=== PATIENT | male | born 1945 | race Hispanic/Latino ===

== ENCOUNTER 2020-04-29 12:43 | Emergency (ER) | payer OTHER, MEDICARE ==
[~2020-04-29] VITALS: Ht 182.9 cm; Wt 113.4 kg
[2020-04-29] MEDS ORDERED: ACETAMINOPHEN 325 MG TAB ONE ×2 (13:09→14:07)
[2020-04-29] MEDS ORDERED: TETANUS/DIPHTHERIA TOXOID [ADULT] 0.5 ML VIAL IM ONE (13:10)
[2020-04-29 13:25] LABS: BASOPHILS % (AUTO) 0.3 % (0.0-5.0); EOSINOPHILS % (AUTO) 0.3 % (0.0-8.0); HEMATOCRIT 41.2 % (42-54); LYMPHOCYTES % (AUTO) 16.9 % (21.0-51.0); MEAN CORPUSCULAR HGB CONC 33.7 g/dL (32.0-36.0); MEAN CORPUSCULAR VOLUME 94.7 fL (79-99); MONOCYTES % (AUTO) 5.1 % (3.0-13.0); NEUTROPHILS % (AUTO) 77.2 % (40.0-77.0); PLATELET COUNT (AUTO) 240 K/uL (130-400); RED BLOOD CELL COUNT(AUTO) 4.35 MIL/uL (4.50-6.20); RED CELL DISTRIBUTION WIDTH 13.5 % (11.0-15.5); WHITE BLOOD COUNT (AUTO) 9.1 K/uL (4.8-10.8)
[2020-04-29 13:37] LABS: CREATININE 1.4 mg/dL (0.5-1.5); POTASSIUM 3.7 mmol/L (3.5-5.1)
[2020-04-29 13:41] LABS: ALBUMIN 3.2 g/dL (3.5-5.0); TOTAL PROTEIN, SERUM 7.3 g/dL (6.0-8.3)
[2020-04-29] MEDS ORDERED: AMOXICILLIN/POTASSIUM CLAV 875-125 TABLET PO SCH (14:30)
[2020-05-19] MEDS ORDERED: PARO-37 PO (01:23)
[2020-05-19] MEDS ORDERED: ALLO100T PO (01:23)
[2020-05-19] MEDS ORDERED: CHOL2000 PO (01:23)
[2020-05-19] MEDS ORDERED: NIFE30TA98 PO (01:23)
[2020-05-19] MEDS ORDERED: ATOR20TA65 PO (01:23)
[2020-05-19] MEDS ORDERED: VALS320T16 PO (01:23)
== END 2020-04-29 16:07 | disposition home or self-care (01) ==
LOC: EDH 12:43
DX: S81.851A Open bite, right lower leg, initial encounter (principal); R73.9 Hyperglycemia, unspecified; Z90.49 Acquired absence of other specified parts of digestive tract; W54.0XXA Bitten by dog, initial encounter; Y93.89 Activity, other specified; Y92.098 Other place in other non-institutional residence as the place of occurrence of the external cause; Y99.8 Other external cause status
CPT/HCPCS: 36415; 73590; 80053; 85025; 90471; 90714

== ENCOUNTER → 2020-05-10 | Outpatient (CLI) | payer OTHER, MEDICARE ==
[~2020-05-10] MED LIST: ALLO100T PO; ATOR20TA65 PO; CHOL2000 PO; LIDOCAINE/PRILOCAINE CREAM 5GM TUBE TP ONE; NIFE30TA98 PO; PARO-37 PO; VALS320T16 PO
== END | disposition home or self-care (01) ==
LOC: WHH 09:00
PROVIDERS: ATTEND Family Medicine
DX: S81.852A Open bite, left lower leg, initial encounter (principal); S81.851A Open bite, right lower leg, initial encounter; I12.9 Hypertensive chronic kidney disease with stage 1 through stage 4 chronic kidney disease, or unspecified chronic kidney disease; N18.2 Chronic kidney disease, stage 2 (mild); E78.5 Hyperlipidemia, unspecified; I51.7 Cardiomegaly; F10.10 Alcohol abuse, uncomplicated; F32.9 Major depressive disorder, single episode, unspecified; Z90.49 Acquired absence of other specified parts of digestive tract; W54.0XXA Bitten by dog, initial encounter; Y93.89 Activity, other specified; Y92.89 Other specified places as the place of occurrence of the external cause; Y99.8 Other external cause status
CPT/HCPCS: 11042; A4450; J3490

== ENCOUNTER 2021-12-09 14:02 | Inpatient (IN) | payer MEDICARE ==
[~2021-12-09] VITALS: Ht 182.9 cm; Wt 126.1 kg
[~2021-12-09 14:02] MED LIST changes: -LIDOCAINE/PRILOCAINE CREAM 5GM TUBE TP ONE
[2021-12-09] MEDS ORDERED: 0.9%NACL 1000ML 1,000 ML IV ONE (14:08)
[2021-12-09 14:30] LABS: BASOPHILS % (AUTO) 0.3 % (0.0-5.0); HEMATOCRIT 41.8 % (42-54); LYMPHOCYTES % (AUTO) 8.1 % (21.0-51.0); MEAN CORPUSCULAR VOLUME 88.4 fL (79-99); MONOCYTES % (AUTO) 5.4 % (3.0-13.0); NEUTROPHILS % (AUTO) 85.5 % (40.0-77.0); PLATELET COUNT (AUTO) 87 K/uL (130-400); RED BLOOD CELL COUNT(AUTO) 4.73 MIL/uL (4.50-6.20); RED CELL DISTRIBUTION WIDTH 14.3 % (11.0-15.5); WHITE BLOOD COUNT (AUTO) 6.8 K/uL (4.8-10.8)
[2021-12-09 14:40] LABS: POTASSIUM 3.9 mmol/L (3.5-5.1)
[2021-12-09 14:42] LABS: INR 1.1 (0.85-1.15); PROTHROMBIN TIME 11.9 SEC (9.6-11.6)
[2021-12-09 14:44] LABS: PARTIAL THROMBOPLASTIN TIME 28.1 SEC (26.3-35.5)
[2021-12-09 14:47] LABS: ALBUMIN 2.6 g/dL (3.5-5.0); BILIRUBIN,TOTAL 2.4 mg/dL (0.2-1.0); TOTAL PROTEIN, SERUM 6.2 g/dL (6.0-8.3)
[2021-12-09 14:52] LABS: B-TYPE NATRIURETIC PEPTIDE 32 pg/mL (0-100)
[2021-12-09] MEDS ORDERED: ONDANSETRON 4MG INJ IVP PRN (16:30)
[2021-12-09] MEDS: INSULIN HUMULIN R 100 UNIT/ML 3ML SQ SCH ×2 (16:30→20:30)
[2021-12-09 18:29] LABS: APPEARANCE,URINE Turbid (CLEAR); BILIRUBIN,URINE Small (NEGATIVE); COLOR,URINE Dark Yellow (YELLOW); GLUCOSE, URINE (UA) Negative (NEGATIVE); KETONES,URINE Trace mg/dL (NEGATIVE); LEUKOCYTE ESTERASE ,URINE Trace (NEGATIVE); NITRATE,URINE Positive (NEGATIVE); OCCULT BLOOD,URINE Negative (NEGATIVE); PH,URINE 5.5 (5.0-8.0); PROTEIN,URINE POS 1+ mg/dL (NEGATIVE)
[2021-12-09] MEDS: IPRATROPIUM/ALBUTEROL SULFATE 3 ML SOLUTION IH SCH (18:30)
[2021-12-09 18:37] LABS: AMPHET/METH SCREEN,URINE NEGATIVE (NEGATIVE); BARBITURATE SCREEN, URINE NEGATIVE (NEGATIVE); BENZODIAZEPINES SCREEN,URINE NEGATIVE (NEGATIVE); CANNABINOID SCREEN,URINE POSITIVE (NEGATIVE); COCAINE SCREEN,URINE POSITIVE (NEGATIVE); OPIATE SCREEN,URINE NEGATIVE (NEGATIVE); PHENCYCLIDINE SCREEN,URINE NEGATIVE (NEGATIVE)
[2021-12-09 18:38] LABS: AMORPHOUS SEDIMENT,UR Moderate /LPF (None Seen); BACTERIA,URINE Few /HPF (None Seen); MUCUS,URINE Many LPF (None Seen); SQUAMOUS EPITHELIAL CELL,UR Moderate /HPF (0-2)
[2021-12-09 19:40] VITALS: BP 134/62
[2021-12-09 23:29] VITALS: BP 142/68
[2021-12-10] MEDS: IPRATROPIUM/ALBUTEROL SULFATE 3 ML SOLUTION IH SCH ×4 (00:15→19:43)
[2021-12-10 04:31] VITALS: BP 138/69
[2021-12-10 04:57] LABS: HEMATOCRIT 38.3 % (42-54); MEAN CORPUSCULAR HEMOGLOBIN 29.9 pg (27.0-33.0); MEAN CORPUSCULAR HGB CONC 33.7 g/dL (32.0-36.0); MEAN CORPUSCULAR VOLUME 88.9 fL (79-99); RED BLOOD CELL COUNT(AUTO) 4.31 MIL/uL (4.50-6.20); RED CELL DISTRIBUTION WIDTH 14.6 % (11.0-15.5); WHITE BLOOD COUNT (AUTO) 6.3 K/uL (4.8-10.8)
[2021-12-10 05:07] LABS: CREATININE 1.9 mg/dL (0.5-1.5); MAGNESIUM 1.9 mg/dL (1.80-2.40); POTASSIUM 3.6 mmol/L (3.5-5.1)
[2021-12-10 05:21] LABS: HEMOGLOBIN A1C 6.2 % (4.0-6.0)
[2021-12-10] MEDS ORDERED: MAGNESIUM 2GM PREMIX 50ML 50 ML IV PRN (06:00)
[2021-12-10] MEDS ORDERED: LIDOCAINE HCL-MPF 1% 2ML VIAL IV PRN (06:00)
[2021-12-10] MEDS ORDERED: POTASSIUM CHLORIDE 10% ELIXIR 20 MEQ/15 ML UDCUP PO PRN (06:00)
[2021-12-10] MEDS ORDERED: POTASSIUM CHLORIDE 20MEQ/100ML 100 ML IV PRN (06:00)
[2021-12-10] MEDS: KCL 20 MEQ ERTAB PO PRN ×2 (06:23→19:54)
[2021-12-10 07:05] VITALS: BP 93/27
[2021-12-10] MEDS: INSULIN HUMULIN R 100 UNIT/ML 3ML SQ SCH ×4 (07:17→21:22)
[2021-12-10] MEDS: FUROSEMIDE 40MG VIAL IV SCH (09:56)
[2021-12-10] MEDS: ENOXAPARIN SODIUM 40 MG/0.4 ML SYRINGE SQ SCH (09:57)
[2021-12-10 11:05] VITALS: BP 104/43
[2021-12-10] MEDS ORDERED: IPRATROPIUM/ALBUTEROL SULFATE 3 ML SOLUTION IH PRN (14:30)
[2021-12-10 15:05] VITALS: BP 114/45
[2021-12-10] MEDS: DEXTROSE 5 % AND 0.9 % NACL 1,000 ML IV SCH (15:14)
[2021-12-10 20:00] VITALS: BP 114/53
[2021-12-10] MEDS ORDERED: ALPRAZOLAM 0.5 MG TABLET PO SCH (20:30)
[2021-12-11] VITALS: BP 108/56
[2021-12-11] MEDS: IPRATROPIUM/ALBUTEROL SULFATE 3 ML SOLUTION IH SCH ×5 (01:19→23:46)
[2021-12-11] MEDS: ACETAMINOPHEN 325 MG TAB PO PRN (01:32)
[2021-12-11] MEDS: DEXTROSE 5 % AND 0.9 % NACL 1,000 ML IV SCH ×2 (02:13→18:14)
[2021-12-11 04:00] VITALS: BP 100/54
[2021-12-11 04:41] LABS: BASOPHILS % (AUTO) 0.4 % (0.0-5.0); HEMATOCRIT 35.5 % (42-54); LYMPHOCYTES % (AUTO) 7.8 % (21.0-51.0); MEAN CORPUSCULAR HGB CONC 34.9 g/dL (32.0-36.0); MEAN CORPUSCULAR VOLUME 88.8 fL (79-99); MONOCYTES % (AUTO) 6.1 % (3.0-13.0); NEUTROPHILS % (AUTO) 84.6 % (40.0-77.0); PLATELET COUNT (AUTO) 68 K/uL (130-400); RED CELL DISTRIBUTION WIDTH 14.7 % (11.0-15.5); WHITE BLOOD COUNT (AUTO) 5.3 K/uL (4.8-10.8)
[2021-12-11 04:54] LABS: CREATININE 2.5 mg/dL (0.5-1.5); MAGNESIUM 2.2 mg/dL (1.80-2.40); POTASSIUM 3.7 mmol/L (3.5-5.1)
[2021-12-11] MEDS: INSULIN HUMULIN R 100 UNIT/ML 3ML SQ SCH ×4 (06:41→20:24)
[2021-12-11 07:56] VITALS: BP 99/51
[2021-12-11] MEDS: FUROSEMIDE 40MG VIAL IV SCH (08:53)
[2021-12-11] MEDS: ENOXAPARIN SODIUM 40 MG/0.4 ML SYRINGE SQ SCH (08:54)
[2021-12-11 12:00] VITALS: BP 85/46
[2021-12-11 16:00] VITALS: BP 102/48
[2021-12-11 20:00] VITALS: BP 99/51
[2021-12-12] VITALS (8 sets, daily range): BP systolic 83–117; BP diastolic 38–59
[2021-12-12 05:33] LABS: HEMATOCRIT 35.8 % (42-54); MEAN CORPUSCULAR HGB CONC 33.8 g/dL (32.0-36.0); MEAN CORPUSCULAR VOLUME 88.6 fL (79-99); RED BLOOD CELL COUNT(AUTO) 4.04 MIL/uL (4.50-6.20); RED CELL DISTRIBUTION WIDTH 15.1 % (11.0-15.5); WHITE BLOOD COUNT (AUTO) 8.7 K/uL (4.8-10.8)
[2021-12-12] MEDS: INSULIN HUMULIN R 100 UNIT/ML 3ML SQ SCH ×4 (05:51→20:11)
[2021-12-12 05:55] LABS: CREATININE 3.4 mg/dL (0.5-1.5); MAGNESIUM 2.3 mg/dL (1.80-2.40); POTASSIUM 3.9 mmol/L (3.5-5.1)
[2021-12-12] MEDS: IPRATROPIUM/ALBUTEROL SULFATE 3 ML SOLUTION IH SCH ×4 (06:40→23:12)
[2021-12-12] MEDS: DEXTROSE 5 % AND 0.9 % NACL 1,000 ML IV SCH ×2 (07:02→15:21)
[2021-12-12] MEDS: FUROSEMIDE 40MG VIAL IV SCH (08:09)
[2021-12-12] MEDS: ENOXAPARIN SODIUM 40 MG/0.4 ML SYRINGE SQ SCH (08:09)
[2021-12-13] VITALS (7 sets, daily range): BP systolic 84–110; BP diastolic 42–53
[2021-12-13 05:22] LABS: ALBUMIN 1.7 g/dL (3.5-5.0); CREATININE 3.8 mg/dL (0.5-1.5); PHOSPHORUS 3.7 mg/dL (2.5-4.9); POTASSIUM 4.2 mmol/L (3.5-5.1)
[2021-12-13] MEDS: INSULIN HUMULIN R 100 UNIT/ML 3ML SQ SCH ×4 (06:09→21:00)
[2021-12-13] MEDS: IPRATROPIUM/ALBUTEROL SULFATE 3 ML SOLUTION IH SCH ×4 (06:19→23:08)
[2021-12-13] MEDS: DEXTROSE 5 % AND 0.9 % NACL 1,000 ML IV SCH (09:49)
[2021-12-13] MEDS ORDERED: 0.9% NACL 500ML IV.SOLN 500 ML IV ONE ×2 (13:56→14:00)
[2021-12-13] MEDS: DILTIAZEM 60MG TAB ONE ×2 (13:59→15:13)
[2021-12-13] MEDS ORDERED: 0.9%NACL 1000ML 1,000 ML IV SCH (14:00)
[2021-12-13] MEDS: ENOXAPARIN SODIUM 40 MG/0.4 ML SYRINGE SQ SCH (14:57)
[2021-12-13] MEDS ORDERED: DILTIAZEM 60MG TAB PO SCH (18:00)
[2021-12-13] MEDS: DILTIAZEM 60MG TAB PO SCH ×2 (21:00→23:44)
[2021-12-14 04:21] VITALS: BP 84/42
[2021-12-14] MEDS: DILTIAZEM 60MG TAB PO SCH ×4 (06:00→23:50)
[2021-12-14] MEDS: INSULIN HUMULIN R 100 UNIT/ML 3ML SQ SCH ×4 (06:10→21:00)
[2021-12-14] MEDS: IPRATROPIUM/ALBUTEROL SULFATE 3 ML SOLUTION IH SCH ×4 (06:48→23:22)
[2021-12-14 08:00] VITALS: BP 86/45
[2021-12-14] MEDS: ENOXAPARIN SODIUM 40 MG/0.4 ML SYRINGE SQ SCH (08:51)
[2021-12-14] MEDS: ASPIRIN 81 MG EC TAB PO SCH (08:51)
[2021-12-14 12:00] VITALS: BP 89/56
[2021-12-14 12:43] LABS: HEMATOCRIT 35.8 % (42-54); MEAN CORPUSCULAR HEMOGLOBIN 30.6 pg (27.0-33.0); MEAN CORPUSCULAR HGB CONC 35.2 g/dL (32.0-36.0); MEAN CORPUSCULAR VOLUME 86.9 fL (79-99); RED BLOOD CELL COUNT(AUTO) 4.12 MIL/uL (4.50-6.20); RED CELL DISTRIBUTION WIDTH 15.5 % (11.0-15.5); WHITE BLOOD COUNT (AUTO) 7.9 K/uL (4.8-10.8)
[2021-12-14 13:06] LABS: CREATININE 4.3 mg/dL (0.5-1.5); POTASSIUM 3.9 mmol/L (3.5-5.1)
[2021-12-14 16:00] VITALS: BP 90/53
[2021-12-14 20:28] VITALS: BP 111/48
[2021-12-14 23:47] VITALS: BP 98/60
[2021-12-15 04:40] VITALS: BP 108/58
[2021-12-15] MEDS: DILTIAZEM 60MG TAB PO SCH ×3 (06:00→18:00)
[2021-12-15] MEDS: INSULIN HUMULIN R 100 UNIT/ML 3ML SQ SCH ×4 (06:23→21:00)
[2021-12-15] MEDS: IPRATROPIUM/ALBUTEROL SULFATE 3 ML SOLUTION IH SCH ×4 (06:41→23:25)
[2021-12-15 08:00] VITALS: BP 101/62
[2021-12-15] MEDS: ASPIRIN 81 MG EC TAB PO SCH (10:14)
[2021-12-15] MEDS: ENOXAPARIN SODIUM 40 MG/0.4 ML SYRINGE SQ SCH (10:15)
[2021-12-15 12:00] VITALS: BP 129/54
[2021-12-15 16:00] VITALS: BP 103/50
[2021-12-15 20:09] VITALS: BP 145/99
[2021-12-15 20:30] LABS: ALBUMIN 1.7 g/dL (3.5-5.0); CREATININE 3.2 mg/dL (0.5-1.5); PHOSPHORUS 5.7 mg/dL (2.5-4.9)
[2021-12-15 23:30] VITALS: BP 102/54
[2021-12-16 04:17] VITALS: BP 113/64
[2021-12-16 04:51] LABS: MEAN CORPUSCULAR HEMOGLOBIN 30.4 pg (27.0-33.0); MEAN CORPUSCULAR HGB CONC 35.4 g/dL (32.0-36.0); MEAN CORPUSCULAR VOLUME 85.8 fL (79-99); RED BLOOD CELL COUNT(AUTO) 4.08 MIL/uL (4.50-6.20); RED CELL DISTRIBUTION WIDTH 15.6 % (11.0-15.5); WHITE BLOOD COUNT (AUTO) 7.8 K/uL (4.8-10.8)
[2021-12-16 05:22] LABS: ALBUMIN 1.8 g/dL (3.5-5.0); BILIRUBIN,TOTAL 1.6 mg/dL (0.2-1.0); CREATININE 2.9 mg/dL (0.5-1.5); MAGNESIUM 2.9 mg/dL (1.80-2.40); POTASSIUM 3.9 mmol/L (3.5-5.1)
[2021-12-16] MEDS: DILTIAZEM 60MG TAB PO SCH ×4 (06:00→18:00)
[2021-12-16] MEDS: IPRATROPIUM/ALBUTEROL SULFATE 3 ML SOLUTION IH SCH ×4 (06:37→23:20)
[2021-12-16] MEDS: INSULIN HUMULIN R 100 UNIT/ML 3ML SQ SCH ×4 (06:42→21:00)
[2021-12-16 08:00] VITALS: BP 104/58
[2021-12-16] MEDS: ASPIRIN 81 MG EC TAB PO SCH (09:33)
[2021-12-16] MEDS: ENOXAPARIN SODIUM 40 MG/0.4 ML SYRINGE SQ SCH (09:34)
[2021-12-16 12:00] VITALS: BP 90/53
[2021-12-16 16:00] VITALS: BP 117/66
[2021-12-16 19:00] VITALS: BP 118/82
[2021-12-17] VITALS: BP 125/55
[2021-12-17 04:00] VITALS: BP 114/63
[2021-12-17] MEDS: INSULIN HUMULIN R 100 UNIT/ML 3ML SQ SCH ×4 (05:55→21:00)
[2021-12-17] MEDS: DILTIAZEM 60MG TAB PO SCH ×4 (05:56→23:44)
[2021-12-17] MEDS: IPRATROPIUM/ALBUTEROL SULFATE 3 ML SOLUTION IH SCH ×4 (06:35→23:57)
[2021-12-17 08:00] VITALS: BP 101/72
[2021-12-17] MEDS: ASPIRIN 81 MG EC TAB PO SCH (09:14)
[2021-12-17] MEDS: ENOXAPARIN SODIUM 40 MG/0.4 ML SYRINGE SQ SCH (09:16)
[2021-12-17 12:00] VITALS: BP 96/46
[2021-12-17] MEDS ORDERED: IPRATROPIUM/ALBUTEROL SULFATE 3 ML SOLUTION IH PRN (15:30)
[2021-12-17 16:00] VITALS: BP 93/57
[2021-12-17 19:00] VITALS: BP 118/66
[2021-12-18] VITALS (7 sets, daily range): BP systolic 106–136; BP diastolic 39–79
[2021-12-18 05:10] LABS: HEMATOCRIT 34.4 % (42-54); MEAN CORPUSCULAR HEMOGLOBIN 30.7 pg (27.0-33.0); MEAN CORPUSCULAR HGB CONC 34.9 g/dL (32.0-36.0); RED BLOOD CELL COUNT(AUTO) 3.91 MIL/uL (4.50-6.20); RED CELL DISTRIBUTION WIDTH 16.3 % (11.0-15.5); WHITE BLOOD COUNT (AUTO) 9.5 K/uL (4.8-10.8)
[2021-12-18 05:29] LABS: CREATININE 1.6 mg/dL (0.5-1.5); POTASSIUM 4.5 mmol/L (3.5-5.1)
[2021-12-18] MEDS: INSULIN HUMULIN R 100 UNIT/ML 3ML SQ SCH ×4 (06:05→20:19)
[2021-12-18] MEDS: IPRATROPIUM/ALBUTEROL SULFATE 3 ML SOLUTION IH SCH ×4 (06:16→23:52)
[2021-12-18] MEDS: APIXABAN 5 MG TABLET PO SCH ×2 (09:47→20:20)
[2021-12-18] MEDS: DILTIAZEM 120MG SR CAP PO SCH (09:49)
[2021-12-19 03:28] VITALS: BP 112/58
[2021-12-19] MEDS: INSULIN HUMULIN R 100 UNIT/ML 3ML SQ SCH ×4 (06:15→20:48)
[2021-12-19] MEDS: IPRATROPIUM/ALBUTEROL SULFATE 3 ML SOLUTION IH SCH ×4 (06:30→23:44)
[2021-12-19 07:10] VITALS: BP 124/73
[2021-12-19] MEDS: DILTIAZEM 120MG SR CAP PO SCH (08:58)
[2021-12-19] MEDS: APIXABAN 5 MG TABLET PO SCH ×2 (08:58→20:48)
[2021-12-19 11:10] VITALS: BP 119/60
[2021-12-19 15:05] VITALS: BP 128/76
[2021-12-19 19:50] VITALS: BP 127/74
[2021-12-19 23:05] VITALS: BP 137/91
[2021-12-20 03:44] VITALS: BP 132/72
[2021-12-20] MEDS: IPRATROPIUM/ALBUTEROL SULFATE 3 ML SOLUTION IH SCH ×4 (06:34→23:15)
[2021-12-20] MEDS: INSULIN HUMULIN R 100 UNIT/ML 3ML SQ SCH ×4 (06:53→21:00)
[2021-12-20 07:10] VITALS: BP 147/72
[2021-12-20] MEDS: DILTIAZEM 120MG SR CAP PO SCH (08:51)
[2021-12-20] MEDS: APIXABAN 5 MG TABLET PO SCH ×2 (08:52→21:36)
[2021-12-20 12:29] VITALS: BP 111/54
[2021-12-20 16:34] VITALS: BP 125/79
[2021-12-20 19:36] VITALS: BP 126/69
[2021-12-20 23:24] VITALS: BP 130/73
[2021-12-21 03:55] VITALS: BP 125/60
[2021-12-21] MEDS: INSULIN HUMULIN R 100 UNIT/ML 3ML SQ SCH ×4 (06:05→21:00)
[2021-12-21] MEDS: IPRATROPIUM/ALBUTEROL SULFATE 3 ML SOLUTION IH SCH ×4 (06:51→23:28)
[2021-12-21 07:58] VITALS: BP 132/66
[2021-12-21] MEDS: DILTIAZEM 120MG SR CAP PO SCH (09:15)
[2021-12-21] MEDS: APIXABAN 5 MG TABLET PO SCH ×2 (09:16→21:04)
[2021-12-21 11:53] VITALS: BP 108/57
[2021-12-21] MEDS: ACETAMINOPHEN 325 MG TAB PO PRN (13:09)
[2021-12-21] MEDS: CEFEPIME HCL 1 GM VIAL IVP SCH ×2 (15:26→23:04)
[2021-12-21 16:00] VITALS: BP 109/64
[2021-12-21 19:01] VITALS: BP 126/59
[2021-12-21 23:54] VITALS: BP 128/53
[2021-12-22 04:18] VITALS: BP 111/61
[2021-12-22 04:56] LABS: HEMATOCRIT 35.7 % (42-54); MEAN CORPUSCULAR HEMOGLOBIN 31.3 pg (27.0-33.0); MEAN CORPUSCULAR HGB CONC 34.2 g/dL (32.0-36.0); MEAN CORPUSCULAR VOLUME 91.5 fL (79-99); RED BLOOD CELL COUNT(AUTO) 3.9 MIL/uL (4.50-6.20); RED CELL DISTRIBUTION WIDTH 17.2 % (11.0-15.5); WHITE BLOOD COUNT (AUTO) 7.5 K/uL (4.8-10.8)
[2021-12-22 05:22] LABS: CREATININE 1.1 mg/dL (0.5-1.5); POTASSIUM 4.1 mmol/L (3.5-5.1)
[2021-12-22] MEDS: CEFEPIME HCL 1 GM VIAL IVP SCH ×3 (05:49→21:17)
[2021-12-22] MEDS: INSULIN HUMULIN R 100 UNIT/ML 3ML SQ SCH ×4 (06:05→20:42)
[2021-12-22] MEDS: IPRATROPIUM/ALBUTEROL SULFATE 3 ML SOLUTION IH SCH ×4 (06:20→23:49)
[2021-12-22 07:05] VITALS: BP 133/73
[2021-12-22] MEDS: DILTIAZEM 120MG SR CAP PO SCH (08:57)
[2021-12-22] MEDS: APIXABAN 5 MG TABLET PO SCH ×2 (08:57→20:44)
[2021-12-22 10:50] VITALS: BP 120/58
[2021-12-22] MEDS: ACETAMINOPHEN 325 MG TAB PO PRN (11:42)
[2021-12-22 15:05] VITALS: BP 110/63
[2021-12-22 19:15] VITALS: BP 130/70
[2021-12-22 23:13] VITALS: BP 113/74
[2021-12-23 03:46] VITALS: BP 128/68
[2021-12-23] MEDS: CEFEPIME HCL 1 GM VIAL IVP SCH ×3 (05:56→21:30)
[2021-12-23] MEDS: IPRATROPIUM/ALBUTEROL SULFATE 3 ML SOLUTION IH SCH ×4 (06:29→23:56)
[2021-12-23 07:05] VITALS: BP 128/65
[2021-12-23] MEDS: INSULIN HUMULIN R 100 UNIT/ML 3ML SQ SCH ×4 (07:20→20:40)
[2021-12-23] MEDS: DILTIAZEM 120MG SR CAP PO SCH (10:51)
[2021-12-23] MEDS: APIXABAN 5 MG TABLET PO SCH ×2 (10:52→20:40)
[2021-12-23 11:05] VITALS: BP 102/61
[2021-12-23 15:05] VITALS: BP 116/72
[2021-12-23] MEDS: ACETAMINOPHEN 325 MG TAB PO PRN (18:42)
[2021-12-23 19:48] VITALS: BP 117/72
[2021-12-23 23:50] VITALS: BP 118/84
[2021-12-24 03:23] VITALS: BP 112/58
[2021-12-24] MEDS: CEFEPIME HCL 1 GM VIAL IVP SCH ×2 (05:56→14:54)
[2021-12-24] MEDS: INSULIN HUMULIN R 100 UNIT/ML 3ML SQ SCH ×3 (05:56→15:56)
[2021-12-24] MEDS: IPRATROPIUM/ALBUTEROL SULFATE 3 ML SOLUTION IH SCH ×3 (06:21→18:27)
[2021-12-24 07:05] VITALS: BP 115/60
[2021-12-24] MEDS: DILTIAZEM 120MG SR CAP PO SCH (08:11)
[2021-12-24] MEDS: APIXABAN 5 MG TABLET PO SCH (08:11)
[2021-12-24 11:00] VITALS: BP 128/72
[2021-12-24 15:05] VITALS: BP 123/70
== END 2021-12-24 19:40 | disposition left against medical advice (07) | DRG 682 ==
LOC: EDH 14:02 → EDHIP 16:02 → 3AH 20:06
PROVIDERS: ADMIT Internal Medicine Infectious Disease; ATTEND Internal Medicine Infectious Disease
DX: N17.9 Acute kidney failure, unspecified (principal); G93.41 Metabolic encephalopathy; E87.1 Hypo-osmolality and hyponatremia; N39.0 Urinary tract infection, site not specified; Z16.24 Resistance to multiple antibiotics; E86.0 Dehydration; F14.10 Cocaine abuse, uncomplicated; D69.6 Thrombocytopenia, unspecified; N18.9 Chronic kidney disease, unspecified; I95.9 Hypotension, unspecified; E11.22 Type 2 diabetes mellitus with diabetic chronic kidney disease; E66.9 Obesity, unspecified; F12.90 Cannabis use, unspecified, uncomplicated; Z20.822 Contact with and (suspected) exposure to COVID-19; F17.200 Nicotine dependence, unspecified, uncomplicated; I25.10 Atherosclerotic heart disease of native coronary artery without angina pectoris; I45.10 Unspecified right bundle-branch block; Z53.29 Procedure and treatment not carried out because of patient's decision for other reasons; F14.129 Cocaine abuse with intoxication, unspecified; I12.9 Hypertensive chronic kidney disease with stage 1 through stage 4 chronic kidney disease, or unspecified chronic kidney disease; E78.00 Pure hypercholesterolemia, unspecified; E78.5 Hyperlipidemia, unspecified; I48.0 Paroxysmal atrial fibrillation; J44.9 Chronic obstructive pulmonary disease, unspecified; Z79.01 Long term (current) use of anticoagulants; Z91.19 Patient's noncompliance with other medical treatment and regimen; Z68.37 Body mass index [BMI] 37.0-37.9, adult
CPT/HCPCS: 36415; 71045; 80048; 80053; 80069; 80305; 81001; 82948; 83036; 83735; 83880; 84484; 85025; 85027; 85610; 85730; 86038; 86215; 86235; 86255; 87040; 87070; 87076; 87077; 87088; 87186; 87635; 87804; 93005; 93306; 93970; 94640; 94664; 97039; C9803; G0378; J0692; J1650; J1940; J3475; J7030; J7040; J7042

== ENCOUNTER 2022-11-23 01:41 | Emergency (ER) | payer MEDICARE ==
[~2022-11-23] VITALS: Ht 182.9 cm; Wt 108.9 kg
[~2022-11-23 01:41] MED LIST changes: -NIFE30TA98 PO; -PARO-37 PO
[2022-11-23 01:43] VITALS: BP 123/58
== END 2022-11-23 02:16 | disposition home or self-care (01) ==
LOC: EDH 01:41
DX: R68.89 Other general symptoms and signs (principal); Z53.21 Procedure and treatment not carried out due to patient leaving prior to being seen by health care provider
CPT/HCPCS: 99281